=== PATIENT | male | born 1985 | race Two or more races ===

== ENCOUNTER 2017-09-07 09:29 | Emergency (ER) | payer OTHER ==
[~2017-09-07] VITALS: Ht 165.1 cm; Wt 66.7 kg
[2017-09-07 09:46] VITALS: BP 127/80
[2017-09-07] MEDS ORDERED: Neosporin Opth Oint ONE (09:59)
[2017-09-07] MEDS ORDERED: Tetanus/Diptheria/Pertussis Vaccine 0.5ml Syr IM ONE (10:00)
[2017-09-07] MEDS ORDERED: Neosporin Oint Ud Pkt TOP ONE (10:00)
--- NOTE | 2017-09-07 11:01 | Emergency Room Report ---
History of Present Illness General Chief Complaint: Pain Source: Patient Present Illness HPI At work yesterday, a sheet of plywood dropped from the 2nd floor and hit into the lower portion of the Left side of his neck. He had tingling of his L arm at that time which resolved fairly quickly. No LOC. He believes the sheet sailed like a piece of paper instead of falling directly onto his neck. Tetanus > 10 years. Pain more with rotating his head to L, none to R. Some resting pain = 7/10, aching, radiates to L shoulder. No arm weakness and numbness has resolved. No meds taken. No medical problems. No fever. No chest pain or dyspnea. R handed. 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 Nursing Documentation: PMH: Agreed; PSxH: Agreed Nursing Documentation-PMH Past Medical History: No Stated History Review of Systems All Other Systems: negative except mentioned in HPI Physical Exam Vital Signs Date Time Temp Pulse Resp B/P (MAP) Pulse Ox O2 Delivery O2 Flow Rate FiO2 09/07/17 09:36 98.5 78 19 128/82 97 Room Air 98.4 Sp02 EP Interpretation: reviewed, normal General Appearance: well appearing, no apparent distress, GCS 15 Head: normocephalic, atraumatic Eyes: bilateral eye normal inspection, bilateral eye PERRL ENT: moist mucus membranes Neck: supple, tender lateral - L at area Respiratory: chest non-tender, lungs clear, normal breath sounds Cardiovascular #1: regular rate, rhythm Cardiovascular #2: 2+ radial (L) Gastrointestinal: normal inspection, non-distended Musculoskeletal: back normal, gait/station normal, normal range of motion Neurologic: alert, oriented x3, motor strength/tone normal, sensory intact, cerebellar normal, normal gait, speech normal, other - RMU nerves normal L hand Skin: warm/dry, abrasions - L lateral neck Medical Decision Making Diagnostic Impression: Primary Impression: Neck contusion Qualified Codes: S10.93XA - Contusion of unspecified part of neck, initial encounter ER Course Patient presents with neck injury with sheet of plywood. DDX: contusion, fracture, abrasion, radiculopathy amongst others. Xrays indicated . Tetanus and analgesia also indicated. Xrays without fracture Patient pain decreased. 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 Discussed need for further evaluation and treatment. Patient stable for outpatient observation and treatment. Other X-Ray Diagnostic Results Other X-Ray Diagnostic Results #1: X-Ray ordered: c spine # of Views/Limited Vs Complete: 3 View Indication: Other EP Interpretation: Yes Interpretation: no dislocation, no soft tissue swelling, no fractures Impression: No acute disease Electronically Signed by: Agustín Piedar MD Other X-Ray Diagnostic Results #2: X-Ray ordered: L clavicle # of Views/Limited Vs Complete: 2 View Indication: Other EP Interpretation: Yes Interpretation: no dislocation, no soft tissue swelling, no fractures Impression: No acute disease Electronically Signed by: Agustín Piedra MD Last Vital Signs Date Time Temp Pulse Resp B/P (MAP) Pulse Ox O2 Delivery O2 Flow Rate FiO2 09/07/17 11:21 98.4 78 16 117/75 99 Room Air 98.4 Status: improved Disposition: HOME, SELF-CARE Condition: Improved Scripts Bacitracin (Bacitracin) 28.4 Gm Oint...g. 1 APPLIC TOPIC BID, #20 GM Prov: Agustín Piedra M.D. 09/07/17 Tramadol Hcl* (ULTRAM*) 50 Mg Tablet 50 MG ORAL Q6H PRN for For Pain, #10 TAB 0 Refills Prov: Agustín Piedra M.D. 09/07/17 Ibuprofen* (MOTRIN*) 600 Mg Tablet 600 MG ORAL Q6H PRN for For Pain, #20 TAB Prov: Agustín Piedra M.D. 09/07/17 Referrals: NOT CHOSEN BETSY/,REFERRING (PCP) Agustín Piedra M.D. Sep 07, 2017 11:01
[2017-09-07] MEDS ORDERED: TRAMADOL HCL50 MG ORAL (11:08)
[2017-09-07] MEDS ORDERED: IBUPROFEN600 MG ORAL (11:08)
[2017-09-07] MEDS ORDERED: BACITRACIN15 GM TOPIC (11:08)
--- NOTE | 2017-09-07 11:10 | Diagnostic Imaging Report ---
Indication: Neck Pain Findings: 3 views of the cervical spine were obtained. There is no acute fracture identified. Alignment is normal. The open-mouth odontoid view shows an intact dens and good alignment of the lateral masses with respect to the body of C2. There is no soft tissue swelling. Impression: Negative cervical spine examination.
[2017-09-07 11:11] VITALS: BP 117/75
--- NOTE | 2017-09-07 11:11 | Diagnostic Imaging Report ---
Indication: Left clavicle injury. Pain. Comparison: None Findings: 2 view left clavicle obtained. No acute fracture or malalignment identified. AC joint appears unremarkable. IMPRESSION: Negative left clavicle series
[2017-09-07 11:21] VITALS: BP 117/75
== END 2017-09-07 11:24 | disposition home or self-care (01) ==
LOC: EMR 10:40
DX: S10.93XA Contusion of unspecified part of neck, initial encounter (principal); W22.8XXA Striking against or struck by other objects, initial encounter; Y92.9 Unspecified place or not applicable; Z23 Encounter for immunization
CPT/HCPCS: 72040; 90471; 90715; 99284